=== PATIENT | male | born 1955 | race Two or more races ===

== ENCOUNTER 2017-02-19 08:15 | Emergency (ER) | payer MEDICAID, OTHER ==
[~2017-02-19] VITALS: Ht 162.6 cm; Wt 71.7 kg
--- NOTE | 2017-02-19 08:37 | NUR ---
BIB DTR TO ED DUE TO STOMACH UPSET X 2 DAYS. PATIENT ALSO REPORTED HAVING BLACK TARRY STOOL X 2 DAYS. PATIENT IS AAO3, APPEARS IN NO APPRENT DISTRESS, RESPIRATION EVEN AND UNLABORED, SATING WELL ON ROOM AIR, PATIENT IS AFEBRILE. VSS. NOTED WITH TREMORS SECONDARY TO PARKINSON'S DSE. GOWNED PT AND PLACED ON TELE MONITOR. PENDING MD BELLAMY
--- NOTE | 2017-02-19 08:40 | NUR ---
MD GOODRICH AT BEDSIDE
[2017-02-19] MEDS ORDERED: PANTOPRAZOLE 40 MG VIAL ONE (08:48)
[2017-02-19] MEDS ORDERED: METOCLOPRAMIDE HCL 10 MG/2 ML VIAL ONE (08:48)
[2017-02-19] MEDS ORDERED: IV NS 0.9% 1,000 ML ONE (08:48)
[2017-02-19] MEDS ORDERED: IV SET PRIMARY PUMP SET 1 EA INFUS.SET MC ONE (08:49)
[2017-02-19] MEDS ORDERED: LORAZEPAM INJ 2 MG/ML VIAL ONE (08:49)
[2017-02-19] MEDS ORDERED: IV NS 0.9% 50 ML IV ONE (08:49)
--- NOTE | 2017-02-19 08:50 | NUR ---
EKG IN PROGRESS
--- NOTE | 2017-02-19 08:52 | NUR ---
PT MEDICATED ORDERED
--- NOTE | 2017-02-19 08:52 | NUR ---
LAC #18 IV ACCESS. BLOOD SAMPLE COLLECTED SENT TO LAB
--- NOTE | 2017-02-19 08:55 | NUR ---
DIRECTOR BUSINESS SYSTEMS AT BEDSIDE
[2017-02-19] MEDS ORDERED: METOCLOPRAMIDE HCL 10 MG/2 ML VIAL IV ONE (09:00)
[2017-02-19] MEDS ORDERED: LORAZEPAM INJ 2 MG/ML VIAL IV ONE (09:00)
[2017-02-19] MEDS ORDERED: IV NS 0.9% 1,000 ML BAG IV ONE (09:00)
[2017-02-19] MEDS ORDERED: PANTOPRAZOLE 40 MG VIAL IV ONE (09:00)
--- NOTE | 2017-02-19 09:06 | NUR ---
URINE SAMPLE COLLECTED SENT TO LAB
[2017-02-19 09:13] LABS: BASOPHILS # (AUTO) 0.1 /CMM (0.0-0.2); BASOPHILS % (AUTO) 1.2 % (0.0-2.0); EOSINOPHILS % (AUTO) 0.7 % (0.0-6.0); HEMATOCRIT 44 % (39-51); LYMPHOCYTES # (AUTO) 2.2 /CMM (0.8-4.8); MEAN CORPUSCULAR HEMOGLOBIN 28 PG (26.0-33.0); MEAN CORPUSCULAR HGB CONC 32 g/dl (31.0-36.0); MEAN CORPUSCULAR VOLUME 87 fL (80-96); MONOCYTES # (AUTO) 0.7 /CMM (0.1-1.30); MONOCYTES % (AUTO) 9.9 % (2.0-12.0); NEUTROPHILS # (AUTO) 4.1 /CMM (1.8-8.9); NEUTROPHILS % (AUTO) 57.2 % (43.0-81.0); PLATELET COUNT (AUTO) 233 /CMM (150-450); RDW COEFFICIENT OF VARIATION 17.1 (11.5-15.0); RED BLOOD CELL COUNT(AUTO) 5.02 MIL/uL (4.5-6.0); WHITE BLOOD COUNT (AUTO) 7.2 K/uL (4.3-11.0)
[2017-02-19 09:16] LABS: APPEARANCE,URINE SL CLOUDY (CLEAR); BILIRUBIN,URINE NEGATIVE (NEGATIVE); BLOOD, URINE NEGATIVE Ery/uL (NEGATIVE); COLOR,URINE YELLOW (YELLOW); KETONES,URINE TRACE (NEGATIVE); LEUKOCYTE ESTERASE ,URINE NEGATIVE (NEGATIVE); NITRITE, URINE NEGATIVE (NEGATIVE); PH,URINE 7.5 (5.0-8.0); PROTEIN,URINE NEGATIVE (NEGATIVE); UGLUCOSE NEGATIVE (NEGATIVE)
[2017-02-19 09:23] LABS: ADD URINE CULTURE NO; BACTERIA,URINE None seen /HPF (None Seen); RBC,URINE 0-2 /HPF (0-2); SQUAMOUS EPITHELIAL CELL,UR Rare /HPF (None Seen); WBC,URINE 0-2 /HPF (0-3)
[2017-02-19 09:33] LABS: ALANINE AMINOTRANSFERASE 25 U/L (12-78); ALBUMIN 3.9 g/dL (3.4-5.0); ALKALINE PHOSPHATASE 100 U/L (46-116); ASPARTATE AMINOTRANSFERASE 38 U/L (15-37); BILIRUBIN,DIRECT 0.3 mg/dL (0.0-0.2); BILIRUBIN,TOTAL 1.8 mg/dL (0.2-1.0); CALCIUM, SERUM 8.9 mg/dL (8.5-10.1); CARBON DIOXIDE 23 mmol/L (21-32); CHLORIDE 104 mmol/L (98-107); GFR 76 mL/min (>60); GLUCOSE 104 mg/dL (74-106); INR 1.04 (0.87-1.13); POTASSIUM 3.5 mmol/L (3.5-5.1); PROTHROMBIN TIME 11.2 SECS (9.5-12.7); SODIUM SERUM 140 mmol/L (136-145); TOTAL PROTEIN, SERUM 7.9 g/dL (6.4-8.2); TROPONIN I < 0.017 ng/mL (0.00-0.056); UREA NITROGEN, BLOOD 9 mg/dL (7-18)
[2017-02-19] MEDS ORDERED: LORAZEPAM 1 MG TABLET ONE (09:53)
[2017-02-19] MEDS ORDERED: LORAZEPAM 1 MG TABLET PO ONE (10:00)
[2017-02-19 10:09] VITALS: BP 137/90
--- NOTE | 2017-02-19 10:09 | NUR ---
Patient discharged to home in stable condition. Written and verbal after care instructions given. Patient verbalizes understanding of instruction.
[2017-02-20] MEDS ORDERED: DIAZ5TAB PO (17:07)
[2017-02-20] MEDS ORDERED: OMEP40CA37 PO (17:07)
[2017-02-20] MEDS ORDERED: CARB-95 PO (17:07)
[2017-02-20] MEDS ORDERED: IBUP-1955 PO (17:07)
== END 2017-02-19 10:10 | disposition home or self-care (01) ==
LOC: ER 08:22
DX: K92.2 Gastrointestinal hemorrhage, unspecified (principal); G25.2 Other specified forms of tremor; G20 Parkinson's disease; I10 Essential (primary) hypertension; M19.90 Unspecified osteoarthritis, unspecified site; Z98.890 Other specified postprocedural states
CPT/HCPCS: 36415; 71010-TC; 80048-TC; 80076-TC; 81000-TC; 84484-TC; 85025-TC; 85730-TC; A4216; A4606; C9113; J2060; J2765; J7030; Z7610

== ENCOUNTER 2017-02-20 16:26 | Inpatient (IN) | payer MEDICAID, OTHER ==
[~2017-02-20] VITALS: Ht 154.9 cm; Wt 63.5 kg
--- NOTE | 2017-02-20 16:43 | NUR ---
PT PRESENTED TO THE ER WITH A C/O SHAKING. PT HAS HX OF PARKINSON'S AND IS CURRENTLY ON CARVADOPA/LEVADOPA. PT STATED THAT IT IS TAKING 3 MONTHS TO GET INTO SEE HIS NEUROLOGIST. PT HAS UNCONTROLLED SHAKING/TREMORS. PT WAS PLACED ON THE MONITOR AND CONTINUOUS PULSE OX. 18G IV STARTED IN [facility]. BLOOD DRAWN AND SENT TO LAB.
[2017-02-20] MEDS ORDERED: LORAZEPAM INJ 2 MG/ML VIAL ONE (16:45)
[2017-02-20 16:57] LABS: BASOPHILS % (AUTO) 0.5 % (0.0-2.0); EOSINOPHILS # (AUTO) 0.1 /CMM (0.0-0.7); EOSINOPHILS % (AUTO) 1.4 % (0.0-6.0); HEMATOCRIT 41 % (39-51); HEMOGLOBIN 13.3 g/dL (13.5-17.5); LYMPHOCYTES # (AUTO) 2.5 /CMM (0.8-4.8); LYMPHOCYTES % (AUTO) 34.1 % (20.0-44.0); MEAN CORPUSCULAR HEMOGLOBIN 29 PG (26.0-33.0); MEAN CORPUSCULAR HGB CONC 33 g/dl (31.0-36.0); MEAN CORPUSCULAR VOLUME 88 fL (80-96); MONOCYTES % (AUTO) 13.3 % (2.0-12.0); NEUTROPHILS # (AUTO) 3.7 /CMM (1.8-8.9); NEUTROPHILS % (AUTO) 50.7 % (43.0-81.0); PLATELET COUNT (AUTO) 190 /CMM (150-450); RED BLOOD CELL COUNT(AUTO) 4.64 MIL/uL (4.5-6.0); WHITE BLOOD COUNT (AUTO) 7.3 K/uL (4.3-11.0)
[2017-02-20] MEDS ORDERED: LORAZEPAM INJ 2 MG/ML VIAL IV ONE (17:00)
--- NOTE | 2017-02-20 17:03 | NUR ---
XRAY IN PROGRESS AT THE BEDSIDE.
[2017-02-20 17:04] LABS: CALCIUM, SERUM 8.6 mg/dL (8.5-10.1); CARBON DIOXIDE 27 mmol/L (21-32); CHLORIDE 105 mmol/L (98-107); GFR 76 mL/min (>60); GLUCOSE 98 mg/dL (74-106); POTASSIUM 3.7 mmol/L (3.5-5.1); SODIUM SERUM 139 mmol/L (136-145); UREA NITROGEN, BLOOD 11 mg/dL (7-18)
[2017-02-20] MEDS ORDERED: OMEP40CA37 PO (17:07)
[2017-02-20] MEDS ORDERED: DIAZ5TAB PO (17:07)
[2017-02-20] MEDS ORDERED: IBUP-1955 PO (17:07)
[2017-02-20] MEDS ORDERED: CARB-95 PO (17:07)
[2017-02-20 17:11] LABS: ALANINE AMINOTRANSFERASE 8 U/L (12-78); ALBUMIN 3.7 g/dL (3.4-5.0); ALKALINE PHOSPHATASE 115 U/L (46-116); ASPARTATE AMINOTRANSFERASE 27 U/L (15-37); BILIRUBIN,DIRECT 0.3 mg/dL (0.0-0.2); BILIRUBIN,TOTAL 1.3 mg/dL (0.2-1.0); TOTAL PROTEIN, SERUM 7.5 g/dL (6.4-8.2)
[2017-02-20 17:13] LABS: TROPONIN I < 0.017 ng/mL (0.00-0.056)
[2017-02-20 17:16] LABS: INR 1.09 (0.87-1.13); PROTHROMBIN TIME 11.3 SECS (9.5-12.7)
--- NOTE | 2017-02-20 17:23 | NUR ---
REPORT GIVEN TO FRANCK JAMES.
[2017-02-20] MEDS ORDERED: MAG HYDROX/AL HYDROX/SIMETH 30 ML UDC PO PRN (17:30)
[2017-02-20] MEDS ORDERED: ACETAMINOPHEN 325 MG TABLET PO PRN (17:30)
[2017-02-20] MEDS ORDERED: HYDROCODONE/APAP 5/325MG 1 EACH TABLET PO PRN (17:30)
[2017-02-20] MEDS ORDERED: ZOLPIDEM TARTRATE 5 MG TABLET PO PRN (17:30)
[2017-02-20] MEDS ORDERED: Z GUARD REMEDY 2 OZ OINT TP PRN (17:30)
[2017-02-20] MEDS ORDERED: ONDANSETRON HCL/PF 4 MG/2 ML VIAL IVP PRN (17:30)
[2017-02-20] MEDS ORDERED: MAGNESIUM HYDROXIDE 30 ML UDC PO PRN (17:30)
--- NOTE | 2017-02-20 17:40 | NUR ---
DR. ROSENBAUM IS AT THE BEDSIDE EVALUATING THE PT.
--- NOTE | 2017-02-20 17:44 | NUR ---
PT LEFT FOR MS VIA WC.
[2017-02-20 18:15] VITALS: BP 127/91
--- NOTE | 2017-02-20 18:15 | NUR ---
MS RN OPENING RECEIVED PATIENT A/POX4 DENIES SOB, DIFFICULTY BREATHING OR PAIN. PATIENT STATES HIS SHAKING HAS JUST GOTTEN WORSE AND HIS MEDICATIONS DO NOT SEEM TO HE HELPING. PATIENT STATES NO NEEDS AT THIS TIME AND MD ROSENBAUM AWARE OF ADMISSION. PATIENT WITH CALL LIGHT IN REACH, BED LOWERED AND LOCKED, RAILS UPX3 FOR SAFETY WITH BED ALARM ON.
--- NOTE | 2017-02-20 18:30 | NUR ---
MS RN NOTES CALLED PHARMACY TO HAVE SINEMET BROUGHT UP FOR PATIENT IS NOT IN P[facility]
--- NOTE | 2017-02-20 18:48 | NUR ---
MS RN CLOSING PATIENT STABLE NO COMPLICATIONS. WILL ENDORSE ADMISSION AND CARE TO RN FOR COMFORT
[2017-02-20 19:00] VITALS: BP 115/72
--- NOTE | 2017-02-20 19:30 | NUR ---
MS RN NOTE PATIENT STABLE. UNCONTROLLED PARKINSONS NOTED. PATIENT ABLE TO AMBULATE TO BATHROOM WITH MINIMAL ASSISTANCE. INSTRUCTED PATIENT TO USE CALL LIGHT WHEN HE NEEDS TO USE BATHROOM. BED LOCKED AND IN LOWEST POSITION. VENETIAN BLIND MECH[employer]IC RAILS UP, CALL LIGHT WITHIN REACH. WILL CONTINUE TO MONITOR.
[2017-02-20 20:18] VITALS: BP 115/72
[2017-02-20] MEDS: CARBIDOPA/LEV CR 50/200 MG 1 UDTAB.SA PO SCH (20:20)
[2017-02-20] MEDS ORDERED: CARBIDOPA/LEVA CR 25/100MG 1 TAB.SA PO SCH (21:00)
[2017-02-20] MEDS: DIAZEPAM 5 MG TABLET PO SCH (21:26)
[2017-02-20] MEDS: LORAZEPAM 1 MG TABLET PO PRN (22:56)
--- NOTE | 2017-02-21 06:18 | NUR ---
MS RN NOTE PATIENT STABLE. SLEEPING WELL. NO S/S OF PAIN OR DISCOMFORT. IV SITE INTACT, WITH NO INFILTRATION NOTED. ALL NEEDS MET AND ATTENDED TO. WILL ENDORSE TO DAY SHIFT FOR COMFORT.
[2017-02-21] MEDS: PANTOPRAZOLE 40 MG TABLET.DR PO SCH (06:45)
[2017-02-21] MEDS: LORAZEPAM 1 MG TABLET PO PRN ×2 (06:46→19:09)
[2017-02-21 06:53] LABS: BASOPHILS # (AUTO) 0.1 /CMM (0.0-0.2); BASOPHILS % (AUTO) 1.5 % (0.0-2.0); EOSINOPHILS # (AUTO) 0.2 /CMM (0.0-0.7); EOSINOPHILS % (AUTO) 2.9 % (0.0-6.0); HEMATOCRIT 39 % (39-51); HEMOGLOBIN 12.6 g/dL (13.5-17.5); LYMPHOCYTES # (AUTO) 2.7 /CMM (0.8-4.8); MEAN CORPUSCULAR HEMOGLOBIN 28 PG (26.0-33.0); MEAN CORPUSCULAR HGB CONC 32 g/dl (31.0-36.0); MEAN CORPUSCULAR VOLUME 88 fL (80-96); MONOCYTES # (AUTO) 0.8 /CMM (0.1-1.30); MONOCYTES % (AUTO) 11.4 % (2.0-12.0); NEUTROPHILS # (AUTO) 3.2 /CMM (1.8-8.9); NEUTROPHILS % (AUTO) 46.2 % (43.0-81.0); PLATELET COUNT (AUTO) 201 /CMM (150-450); RDW COEFFICIENT OF VARIATION 17.4 (11.5-15.0); RED BLOOD CELL COUNT(AUTO) 4.42 MIL/uL (4.5-6.0)
--- NOTE | 2017-02-21 07:13 | NUR ---
MS RN NOTES RECEIVED PATIENT IN BED AWAKE, ALERT AND ORIENTED X4. VERBALLY RESPONSIVE WITH NO C/O PAIN OR DISCOMFORTS VOICED. ON ROOM AIR BREATHING UNLABORED. IV ACCESS ON RAC INTACT AND PATENT. ADVISED PATIENT TO CALL FOR ASSISTANCE GETTING TO THE BATHROOM HE IS UNSTABLE GAIT REPORTED BY NIGHT NURSE. CALL LIGHT WITHIN REACH. BED AT LOW POSITION AND LOCKED FOR SAFETY. WILL CONTINUE TO MONITOR ACCORDINGLY.
[2017-02-21 07:26] LABS: ALBUMIN 3.2 g/dL (3.4-5.0); BILIRUBIN,TOTAL 1.8 mg/dL (0.2-1.0); CALCIUM, SERUM 8.6 mg/dL (8.5-10.1); CREATININE 0.9 mg/dL (0.6-1.3); MAGNESIUM 1.9 mg/dL (1.8-2.4); POTASSIUM 3.8 mmol/L (3.5-5.1); TOTAL PROTEIN, SERUM 6.5 g/dL (6.4-8.2)
[2017-02-21 08:00] VITALS: BP 129/57
[2017-02-21] MEDS: CARBIDOPA/LEV CR 50/200 MG 1 UDTAB.SA PO SCH (08:11)
--- NOTE | 2017-02-21 10:25 | NUR ---
RN NOTES PATIENT SEEN AND EVALUATED PATIENT WITH ORDER FOR PSYCH CONSULT DUE TO ANXIETY. ORDER MADE AND FAXED REQUEST TO DR MALAVE.
[2017-02-21] MEDS: CARBIDOPA/LEVODOPA 25/250 MG 1 UDTAB PO SCH ×2 (13:26→17:03)
[2017-02-21] MEDS: ENTACAPONE 200 MG TABLET PO SCH ×2 (13:26→17:03)
[2017-02-21 16:00] VITALS: BP 125/85
--- NOTE | 2017-02-21 17:11 | NUR ---
RN NOTES FOLLOWED-UP WITH DR BARROW AND HEALTH PHYSICS TECHNICIAN WHETHER PATIENT WILL BE DISCHARGED TODAY AND THEY SAID THAT PATIENT IS NOT CLEAR BY DUY MCMAHAN YET, SO HE CAN'T BE DISCHARGED YET. EXPLAINED SITUATION TO PATIENT. WILL ENDORSED TO NEXT SHIFT NURSE. Addendum: 02/21/17 at 1727 by CALVIN ESCOBAR RN ERROR: KENYON, WRONG PATIENT
--- NOTE | 2017-02-21 18:51 | NUR ---
MS RN CLOSING NOTES PATIENT IN BED A/O X4, SAME ABLE TO VOICED OUT NEEDS AND CONCERNS WITH NO COMPLAINTS OF PAIN OR DISCOMFORTS DURING SHIFT. WATCHES TV ON AND OFF. ALL NEEDS AND CARE PROVIDED WELL. ON ROOM AIR, NO ACUTE DISTRESS NOTED. IV ACCESS ON RIGHT AC INTACT AND PATENT, FLUSHED WITH NS TO MAINTAIN PATENCY. CALL LIGHT WITHIN REACH OF PATIENT. BED LOW, LOCKED WITH SIDE RAILS UP APPROPRIATE FOR SAFETY. ALL DUE MEDS GIVEN ORDERED AND TOLERATED. WILL ENDORSED TO DIRECTOR SKILLS FOR COMFORT.
--- NOTE | 2017-02-21 19:30 | NUR ---
ms rn note patient stable. Will continue to monitor.
[2017-02-21 19:55] VITALS: BP 115/78
[2017-02-21] MEDS: DIAZEPAM 5 MG TABLET PO SCH (21:23)
[2017-02-21 22:00] VITALS: BP 115/78
--- NOTE | 2017-02-22 06:11 | NUR ---
MS RN NOTE PATIENT STABLE. SLEEPING WITH NO S/S OF PAIN OR RESPIRATORY DISTRESS. ALL NEEDS MET AND ATTENDED TO. WILL ENDORSE TO DAY SHIFT FOR COMFORT.
[2017-02-22] MEDS: PANTOPRAZOLE 40 MG TABLET.DR PO SCH (06:33)
--- NOTE | 2017-02-22 07:05 | NUR ---
MS RN INITIAL NOTES REPORT RECEIVED AT THE BEDSIDE. PATIENT IS RESTING COMFORTABLY IN BED. NO SOB OR DISTRESS NOTED AT THIS TIME. PATIENT DENIES PAIN. BED IN A LOW POSITION. CALL LIGHT WITHIN PATIENT REACH. WILL CONTINUE TO MONITOR.
[2017-02-22 08:00] VITALS: BP 145/51
[2017-02-22] MEDS: ENTACAPONE 200 MG TABLET PO SCH ×3 (08:13→19:41)
[2017-02-22] MEDS: CARBIDOPA/LEVODOPA 25/250 MG 1 UDTAB PO SCH ×2 (08:13→12:05)
[2017-02-22] MEDS: ESCITALOPRAM OXALATE (10 MG) 10 MG TABLET PO SCH (15:05)
[2017-02-22] MEDS: LORAZEPAM 1 MG TABLET PO PRN (15:06)
[2017-02-22 16:00] VITALS: BP 120/69
--- NOTE | 2017-02-22 19:00 | NUR ---
MS RN NOTES RECEIVED PATIENT IN BED AWAKE, ALERT AND ORIENTED X 4. IN STABLE CONDITION NO S/S OF DISTRESS NOTED. VERBALLY RESPONSIVE WITH NO C/O PAIN OR DISCOMFORTS VOICED. IV SITE INTACT W/ NO S/S OF INFILTRATION NOTED. CALL LIGHT WITHIN REACH. BED AT LOW POSITION AND LOCKED FOR SAFETY. WILL CONTINUE TO MONITOR ACCORDINGLY.
--- NOTE | 2017-02-22 19:21 | NUR ---
MS RN CLOSING NOTES NO SIGNIFICANT CHANGES IN PATIENT CONDITION THROUGHOUT THE SHIFT. NO SOB OR DISTRESS NOTED AT THIS TIME. PATIENT DENIES PAIN. BED IN A LOW POSITION, CALL LIGHT WITHIN PATIENT REACH. WILL ENDORSE FOR COMFORT.
[2017-02-22 20:00] VITALS: BP 137/91
[2017-02-22] MEDS ORDERED: CARBIDOPA/LEV CR 50/200 MG 1 UDTAB.SA PO SCH (20:00)
[2017-02-22] MEDS: DIVALPROEX SODIUM 250 MG TABLET.DR PO SCH (21:03)
[2017-02-22] MEDS: DIAZEPAM 5 MG TABLET PO SCH (21:03)
[2017-02-23] MEDS ORDERED: SECONDARY IV SET 1 EA INFUS.SET MC ONE (01:35)
[2017-02-23] MEDS: ENTACAPONE 200 MG TABLET PO SCH (05:01)
[2017-02-23] MEDS: CARBIDOPA/LEVODOPA 25/250 MG 1 UDTAB PO SCH (05:01)
--- NOTE | 2017-02-23 06:33 | NUR ---
MS RN CLOSING NOTES PATIENT COMFORTABLY IN BED ASLEEP AND EASILY AWAKEN, HEAD OF BED ELEVATED FOR BETTER LUNG EXPANSION AND BETTER CIRCULATION, TOLERATING ROOM AIR, SP02 96% R.A ALERT AND VERBALLY X 4 NO S/S OF DISTRESS, TOLERATED WELL, IV SITE INTACT W/ NO S/S OF INFILTRATION NOTED. RESPIRATIONS EVEN UNLABORED BREATH SOUNDS. APICAL PULSE REGULAR; GOOD SKIN CARE PROVIDED. PATIENT IN STABLE CONDITION WITH NO SOB NO S/S OF DISTRESS NO NAUSEA AND VOMITING NO HEADACHE NO PAIN, NO CHEST PAIN SAFETY ENVIRONMENT PROVIDED. FREE OF CLUTTERS, SAFE HAZARD FREE ENVIRONMENT. NEEDS ATTENDED AND ANTICIPATED, NURSING CARE RENDERED, KEPT CLEAN AND DRY AND COMFORTABLE. ALL DUE MEDS WAS GIVEN. CALL LIGHT IN REACH, BED LOWERED AND LOCKED, SR X2 FOR SAFETY AND WILL ENDORSE CONTINUE PLAN OF CARE.
--- NOTE | 2017-02-23 07:05 | NUR ---
MS RN INITIAL NOTES REPORT RECEIVED AT THE BEDSIDE. PATIENT IS RESTING COMFORTABLY IN BED. NO SOB OR DISTRESS NOTED AT THIS TIME. PATIENT DENIES PAIN. BED IN A LOW POSITION, CALL LIGHT WITHIN PATIENT REACH. WILL CONTINUE TO MONITOR.
[2017-02-23 08:00] VITALS: BP 123/67
--- NOTE | 2017-02-23 08:02 | NUR ---
MS RN NOTE PATIENT HAS ACCIDENTAL PULLED OUT HIS IV. PATIENT IS NOW REFUSING TO HAVE A NEW ONE INSERTED AND STATES "I AM GOING HOME TODAY, I DON'T NEED IT." WILL INFORM MD.
[2017-02-23] MEDS: PANTOPRAZOLE 40 MG TABLET.DR PO SCH (08:05)
[2017-02-23] MEDS: ESCITALOPRAM OXALATE (10 MG) 10 MG TABLET PO SCH (08:05)
[2017-02-23] MEDS: DIVALPROEX SODIUM 250 MG TABLET.DR PO SCH (08:05)
--- NOTE | 2017-02-23 11:13 | NUR ---
MS BI TECHNICAL LEAD NOTES DISCHARGE INSTRUCTIONS GIVEN TO THE PATIENT AND DAUGHTER AND ABLE TO UNDERSTAND. ALL PAPERWORK SIGNED AND BELONGINGS ACCOUNTED FOR. PATIENT REMOVED IV THIS MORNING, NO BLEEDING NOTED AT THE SITE. PICTURES ARE NOT NEEDED FOR THIS PATIENT SKIN IS INTACT. VITALS CHECKED AND RECORDED. NEW PRESCRIPTIONS GIVEN TO THE PATIENT AND PATIENT UNDERSTANDS FOLLOW UP INSTRUCTIONS WITH [facility]. PATIENT LEFT IN STABLE CONDITION, VIA WHEEL CHAIR, WITH DAUGHTER AND LYNN STRONG. PATIENT DISCHARGED TO HOME WITH DAUGHTER.
== END 2017-02-23 11:14 | disposition home or self-care (01) | DRG 42 ==
LOC: ER 16:28 → MEDSG2 17:30
PROVIDERS: ADMIT Family Medicine; ATTEND Family Medicine
DX: G20 Parkinson's disease (principal); E44.1 Mild protein-calorie malnutrition; I10 Essential (primary) hypertension; M19.90 Unspecified osteoarthritis, unspecified site; R53.81 Other malaise; F39 Unspecified mood [affective] disorder; F41.9 Anxiety disorder, unspecified; K21.9 Gastro-esophageal reflux disease without esophagitis; Z79.899 Other long term (current) drug therapy; M17.9 Osteoarthritis of knee, unspecified; Z68.26 Body mass index [BMI] 26.0-26.9, adult
CPT/HCPCS: 36415; 71010-TC; 80048-TC; 80053-TC; 80076-TC; 83735-TC; 84100-TC; 84484-TC; 85025-TC; 85730-TC; 97001-TC; A4606; J2060; J2405; Z7610

== ENCOUNTER 2017-04-10 09:05 | Emergency (ER) | payer OTHER ==
[~2017-04-10] VITALS: Ht 162.6 cm; Wt 65.8 kg
[~2017-04-10 09:05] MED LIST: DIAZ5TAB PO; IBUP-1955 PO; OMEP40CA37 PO
--- NOTE | 2017-04-10 09:16 | NUR ---
PATIENT ARRIVED TO ER, C/O WEAKNESS. PATIENT IS A/OX 3. BREATHING EVEN AND UNLABORED ON ROOM AIR. NO SOB. VITALS STABLE. SAFETY AND COMFORT MEASURES IN PLACE. AWAITING MD ORDERS.
[2017-04-10] MEDS ORDERED: LORAZEPAM INJ 2 MG/ML VIAL ONE (09:29)
[2017-04-10] MEDS ORDERED: LORAZEPAM INJ 2 MG/ML VIAL IVP ONE (09:30)
[2017-04-10 09:32] LABS: BASOPHILS % (AUTO) 0.5 % (0.0-2.0); EOSINOPHILS # (AUTO) 0.1 /CMM (0.0-0.7); EOSINOPHILS % (AUTO) 1.3 % (0.0-6.0); HEMATOCRIT 45 % (39-51); HEMOGLOBIN 14.6 g/dL (13.5-17.5); LYMPHOCYTES # (AUTO) 1.9 /CMM (0.8-4.8); LYMPHOCYTES % (AUTO) 27.2 % (20.0-44.0); MEAN CORPUSCULAR HEMOGLOBIN 27 PG (26.0-33.0); MEAN CORPUSCULAR HGB CONC 32 g/dl (31.0-36.0); MEAN CORPUSCULAR VOLUME 83 fL (80-96); MONOCYTES # (AUTO) 0.8 /CMM (0.1-1.30); NEUTROPHILS # (AUTO) 4.1 /CMM (1.8-8.9); PLATELET COUNT (AUTO) 214 /CMM (150-450); RDW COEFFICIENT OF VARIATION 16.6 (11.5-15.0); RED BLOOD CELL COUNT(AUTO) 5.44 MIL/uL (4.5-6.0); WHITE BLOOD COUNT (AUTO) 6.9 K/uL (4.3-11.0)
--- NOTE | 2017-04-10 09:37 | NUR ---
NEW IV STARTED ON RIGHTH AND, 20 G. BLOOD DRAWN, SENT TO LAB FOR TESTING. MEDICATED PATIENT PER MD ORDERS.
[2017-04-10 09:44] LABS: CALCIUM, SERUM 9.4 mg/dL (8.5-10.1); CREATININE 0.9 mg/dL (0.6-1.3)
[2017-04-10 10:09] VITALS: BP 138/76
--- NOTE | 2017-04-10 10:18 | NUR ---
PATIENT CLEARED FOR DISCHARGE PER MD. VITALS REMAIN STABLE. PRESCRIPTION HANDED TO PATIENT. DISCHARGE EDUCATION PROVIDED REGARDING MEDICATIONS. PATIENT VERBALIZES UNDERSTANDING. IV REMOVED, ID BAND REMOVED. PATIENT DISCHARGED HOME.
== END 2017-04-10 10:18 | disposition home or self-care (01) ==
LOC: ER 09:06
DX: G20 Parkinson's disease (principal); F41.9 Anxiety disorder, unspecified; I10 Essential (primary) hypertension; K21.9 Gastro-esophageal reflux disease without esophagitis; M19.90 Unspecified osteoarthritis, unspecified site
CPT/HCPCS: 36415; 80048-TC; 85025-TC; A4606; J2060; Z7610

== ENCOUNTER 2017-05-18 07:30 | Emergency (ER) | payer OTHER ==
[~2017-05-18] VITALS: Ht 162.6 cm; Wt 61.2 kg
--- NOTE | 2017-05-18 07:38 | NUR ---
HOT FLASHES, NIGHT SWEATS X 4 MONTHS. PER PATIENT "MY DOCTOR DOESN'T DO NOTHING, JUST GETS MAD AT ME".
--- NOTE | 2017-05-18 08:15 | NUR ---
RESEARCH ASSOCIATE MOLECULAR BIOLOGY AT BEDSIDE
--- NOTE | 2017-05-18 08:21 | NUR ---
EKG IN PROGRESS
[2017-05-18] MEDS ORDERED: IV NS 0.9% 1,000 ML BAG IV ONE (08:30)
--- NOTE | 2017-05-18 08:30 | NUR ---
RAC #20 IV ACCESS. BLOOD SAMPLE COLLECTED SENT TO LAB
--- NOTE | 2017-05-18 08:40 | NUR ---
URINE SAMPLE COLLECTED SENT TO LAB
[2017-05-18 08:47] LABS: BASOPHILS % (AUTO) 0.3 % (0.0-2.0); HEMATOCRIT 43 % (39-51); HEMOGLOBIN 14.1 g/dL (13.5-17.5); LYMPHOCYTES # (AUTO) 1.4 /CMM (0.8-4.8); LYMPHOCYTES % (AUTO) 17.1 % (20.0-44.0); MEAN CORPUSCULAR HEMOGLOBIN 27 PG (26.0-33.0); MEAN CORPUSCULAR HGB CONC 33 g/dl (31.0-36.0); MEAN CORPUSCULAR VOLUME 82 fL (80-96); MONOCYTES # (AUTO) 0.8 /CMM (0.1-1.30); MONOCYTES % (AUTO) 9.5 % (2.0-12.0); NEUTROPHILS # (AUTO) 6.1 /CMM (1.8-8.9); NEUTROPHILS % (AUTO) 73.1 % (43.0-81.0); PLATELET COUNT (AUTO) 223 /CMM (150-450); RDW COEFFICIENT OF VARIATION 16.7 (11.5-15.0); RED BLOOD CELL COUNT(AUTO) 5.24 MIL/uL (4.5-6.0); WHITE BLOOD COUNT (AUTO) 8.4 K/uL (4.3-11.0)
[2017-05-18 08:52] LABS: APPEARANCE,URINE SL CLOUDY (CLEAR); BILIRUBIN,URINE NEGATIVE (NEGATIVE); BLOOD, URINE NEGATIVE Ery/uL (NEGATIVE); COLOR,URINE YELLOW (YELLOW); KETONES,URINE 1+ (NEGATIVE); LEUKOCYTE ESTERASE ,URINE TRACE (NEGATIVE); NITRITE, URINE NEGATIVE (NEGATIVE); PROTEIN,URINE NEGATIVE (NEGATIVE); UGLUCOSE NEGATIVE (NEGATIVE)
[2017-05-18 08:55] LABS: CARBON DIOXIDE 24 mmol/L (21-32); CHLORIDE 101 mmol/L (98-107); GLUCOSE 115 mg/dL (74-106); POTASSIUM 3.9 mmol/L (3.5-5.1); SODIUM SERUM 135 mmol/L (136-145); UREA NITROGEN, BLOOD 16 mg/dL (7-18)
[2017-05-18 09:02] LABS: ALANINE AMINOTRANSFERASE 11 U/L (12-78); ALBUMIN 3.8 g/dL (3.4-5.0); ALKALINE PHOSPHATASE 114 U/L (46-116); ASPARTATE AMINOTRANSFERASE 31 U/L (15-37); BILIRUBIN,DIRECT 0.3 mg/dL (0.0-0.2); BILIRUBIN,TOTAL 1.8 mg/dL (0.2-1.0); LIPASE 161 U/L (73-393); TOTAL PROTEIN, SERUM 7.8 g/dL (6.4-8.2); TROPONIN I < 0.017 ng/mL (0.00-0.056)
[2017-05-18 09:05] LABS: BACTERIA,URINE Few /HPF (None Seen); RBC,URINE NONE SEEN /HPF (0-2); SQUAMOUS EPITHELIAL CELL,UR Few /HPF (None Seen)
[2017-05-18 09:10] LABS: INR 1.02 (0.87-1.13); PROTHROMBIN TIME 10.9 SECS (9.5-12.7)
--- NOTE | 2017-05-18 09:35 | NUR ---
IV removed. Catheter intact and site benign. Pressure and 4x4 applied to site. No bleeding noted.
--- NOTE | 2017-05-18 09:35 | NUR ---
Patient discharged to home in stable condition. Written and verbal after care instructions given. Patient verbalizes understanding of instruction.
[2017-05-18 09:36] VITALS: BP 124/82
== END 2017-05-18 09:37 | disposition home or self-care (01) ==
LOC: ER 07:32
DX: R61 Generalized hyperhidrosis (principal); R63.4 Abnormal weight loss; R63.0 Anorexia; R59.1 Generalized enlarged lymph nodes; E80.6 Other disorders of bilirubin metabolism; G20 Parkinson's disease; I10 Essential (primary) hypertension; K21.9 Gastro-esophageal reflux disease without esophagitis; M19.90 Unspecified osteoarthritis, unspecified site; R79.1 Abnormal coagulation profile; F17.200 Nicotine dependence, unspecified, uncomplicated
CPT/HCPCS: 36415; 71010; 80048; 80076; 81001; 83690; 84443; 84484; 85025; 85730; 93005; 96360; 99285; A4606; J7030 ×2; Z7610; 81000-TC

== ENCOUNTER 2017-07-28 18:11 | Emergency (ER) | payer OTHER ==
[~2017-07-28] VITALS: Ht 162.6 cm; Wt 63.5 kg
--- NOTE | 2017-07-28 20:16 | NUR ---
PATIENT AMBULATED TO ER BED 7
[2017-07-28] MEDS ORDERED: LORAZEPAM 1 MG TABLET ONE (20:46)
[2017-07-28 20:59] LABS: BASOPHILS # (AUTO) 0.1 /CMM (0.0-0.2); BASOPHILS % (AUTO) 0.8 % (0.0-2.0); EOSINOPHILS # (AUTO) 0.1 /CMM (0.0-0.7); EOSINOPHILS % (AUTO) 1.5 % (0.0-6.0); HEMATOCRIT 43 % (39-51); HEMOGLOBIN 13.9 g/dL (13.5-17.5); LYMPHOCYTES # (AUTO) 2.1 /CMM (0.8-4.8); LYMPHOCYTES % (AUTO) 21.3 % (20.0-44.0); MEAN CORPUSCULAR HEMOGLOBIN 27 PG (26.0-33.0); MEAN CORPUSCULAR HGB CONC 32 g/dl (31.0-36.0); MEAN CORPUSCULAR VOLUME 84 fL (80-96); MONOCYTES # (AUTO) 0.9 /CMM (0.1-1.30); MONOCYTES % (AUTO) 9.2 % (2.0-12.0); NEUTROPHILS # (AUTO) 6.5 /CMM (1.8-8.9); NEUTROPHILS % (AUTO) 67.2 % (43.0-81.0); PLATELET COUNT (AUTO) 241 /CMM (150-450); RDW COEFFICIENT OF VARIATION 15.3 (11.5-15.0); RED BLOOD CELL COUNT(AUTO) 5.16 MIL/uL (4.5-6.0); WHITE BLOOD COUNT (AUTO) 9.7 K/uL (4.3-11.0)
[2017-07-28] MEDS ORDERED: LORAZEPAM 1 MG TABLET PO ONE (21:00)
--- NOTE | 2017-07-28 21:00 | NUR ---
MEDICATED PT ORDERED
--- NOTE | 2017-07-28 21:05 | NUR ---
20G LEFT AC IV STARED, BLOOD SAMPLE OBTAINED AND SENT TO LAB
[2017-07-28 21:12] LABS: ALANINE AMINOTRANSFERASE 16 U/L (12-78); ALBUMIN 3.8 g/dL (3.4-5.0); ALKALINE PHOSPHATASE 129 U/L (46-116); ASPARTATE AMINOTRANSFERASE 40 U/L (15-37); BILIRUBIN,DIRECT 0.3 mg/dL (0.0-0.2); BILIRUBIN,TOTAL 1.1 mg/dL (0.2-1.0); CALCIUM, SERUM 9.3 mg/dL (8.5-10.1); CARBON DIOXIDE 27 mmol/L (21-32); CHLORIDE 103 mmol/L (98-107); GLUCOSE 86 mg/dL (74-106); SODIUM SERUM 139 mmol/L (136-145); TOTAL PROTEIN, SERUM 7.9 g/dL (6.4-8.2); UREA NITROGEN, BLOOD 15 mg/dL (7-18)
[2017-07-28 21:20] LABS: TROPONIN I < 0.017 ng/mL (0.00-0.056)
--- NOTE | 2017-07-28 22:22 | NUR ---
Patient discharged to home in stable condition. Written and verbal after care instructions given. Patient verbalizes understanding of instruction.IV removed. Catheter intact and site benign. Pressure and 4x4 applied to site. No bleeding noted. PT ambulatory with a steady gait.
[2017-07-28 22:25] VITALS: BP 120/87
== END 2017-07-28 22:27 | disposition home or self-care (01) ==
LOC: ER 18:12
DX: F41.9 Anxiety disorder, unspecified (principal); G20 Parkinson's disease; K21.9 Gastro-esophageal reflux disease without esophagitis; M19.90 Unspecified osteoarthritis, unspecified site; Z98.890 Other specified postprocedural states
CPT/HCPCS: 36415; 71010; 80048; 80076; 84443; 84484; 85025; 93005; 99285; A4606; Z7610

== ENCOUNTER 2018-01-04 11:54 | Emergency (ER) | payer OTHER ==
[~2018-01-04] VITALS: Ht 162.6 cm; Wt 72.6 kg
--- NOTE | 2018-01-04 12:00 | NUR ---
generalized weakness, nausea and vomiting R L Q abd pain, cramping, non radiating x 2 days. c/o dysuria nad noted, vss, resp even and unlabored, pt was put on monitor and hospital, waiting for md petty.
[2018-01-04] MEDS ORDERED: ONDANSETRON HCL/PF 4 MG/2 ML VIAL ONE (12:26)
[2018-01-04 12:27] LABS: BASOPHILS % (AUTO) 0.6 % (0.0-2.0); EOSINOPHILS % (AUTO) 1.1 % (0.0-6.0); HEMATOCRIT 40 % (39-51); LYMPHOCYTES % (AUTO) 26.9 % (20.0-44.0); MEAN CORPUSCULAR HGB CONC 33 g/dl (31.0-36.0); MEAN CORPUSCULAR VOLUME 79 fL (80-96); MONOCYTES # (AUTO) 0.8 /CMM (0.1-1.30); NEUTROPHILS # (AUTO) 4.7 /CMM (1.8-8.9); NEUTROPHILS % (AUTO) 61.4 % (43.0-81.0); PLATELET COUNT (AUTO) 302 /CMM (150-450); RDW COEFFICIENT OF VARIATION 17.1 (11.5-15.0); RED BLOOD CELL COUNT(AUTO) 5.04 MIL/uL (4.5-6.0); WHITE BLOOD COUNT (AUTO) 7.6 K/uL (4.3-11.0)
[2018-01-04] MEDS ORDERED: LORAZEPAM INJ 2 MG/ML VIAL ONE (12:27)
[2018-01-04 12:28] LABS: APPEARANCE,URINE Cloudy (CLEAR); BILIRUBIN,URINE Negative (NEGATIVE); BLOOD, URINE Negative Ery/uL (NEGATIVE); COLOR,URINE Yellow (YELLOW); KETONES,URINE Negative (NEGATIVE); LEUKOCYTE ESTERASE ,URINE Negative (NEGATIVE); NITRITE, URINE Negative (NEGATIVE); PH,URINE 8.5 (5.0-8.0); PROTEIN,URINE Negative (NEGATIVE); UGLUCOSE Negative (NEGATIVE)
[2018-01-04] MEDS ORDERED: LORAZEPAM INJ 2 MG/ML VIAL IV ONE (12:30)
[2018-01-04] MEDS ORDERED: IV NS 0.9% 1,000 ML BAG IV ONE (12:30)
[2018-01-04] MEDS ORDERED: ONDANSETRON HCL/PF 4 MG/2 ML VIAL IVP ONE (12:30)
[2018-01-04 12:40] LABS: POTASSIUM 3.9 mmol/L (3.5-5.1)
[2018-01-04 12:42] LABS: BACTERIA,URINE None seen /HPF (None Seen); RBC,URINE 0-3 /HPF (0-2); SQUAMOUS EPITHELIAL CELL,UR Few /HPF (None Seen); WBC,URINE 0-3 /HPF (0-3)
[2018-01-04] MEDS ORDERED: HYDR-3980 PO (12:42)
[2018-01-04] MEDS ORDERED: TEMA30CA PO (12:42)
[2018-01-04] MEDS ORDERED: LORA2TAB PO (12:42)
[2018-01-04] MEDS ORDERED: GABA-534 PO (12:42)
[2018-01-04] MEDS ORDERED: LIDO30AD10 TP (12:42)
[2018-01-04] MEDS ORDERED: DOCU-141 PO (12:42)
[2018-01-04] MEDS ORDERED: POLY17PO4 PO (12:42)
[2018-01-04 12:43] LABS: URINE AMORPHOUS PHOSPHATES Moderate /HPF (None Seen)
[2018-01-04] MEDS ORDERED: CARB1TAB40 PO (12:44)
[2018-01-04 12:45] LABS: ALBUMIN 3.8 g/dL (3.4-5.0); BILIRUBIN,DIRECT 0.2 mg/dL (0.0-0.2); BILIRUBIN,TOTAL 0.5 mg/dL (0.2-1.0)
[2018-01-04 14:09] VITALS: BP 119/70
--- NOTE | 2018-01-04 14:10 | NUR ---
Patient discharged to home in stable condition. Written and verbal after care instructions given. Patient verbalizes understanding of instruction. IV removed. Catheter intact and site benign. Pressure and 4x4 applied to site. No bleeding noted.
[2018-04-15] MEDS ORDERED: SERT50TA PO (16:16)
[2018-04-15] MEDS ORDERED: TAMS0.4C34 PO (16:16)
[2018-04-15] MEDS ORDERED: CARB-93 PO (16:16)
[2018-04-15] MEDS ORDERED: GABA600T2 PO (16:17)
[2018-04-15] MEDS ORDERED: LORA2TAB PO (16:17)
[2018-04-15] MEDS ORDERED: OMEP40CA37 PO (16:17)
== END 2018-01-04 14:11 | disposition home or self-care (01) ==
LOC: ER 11:56
DX: K57.92 Diverticulitis of intestine, part unspecified, without perforation or abscess without bleeding (principal); K21.9 Gastro-esophageal reflux disease without esophagitis; M19.90 Unspecified osteoarthritis, unspecified site; F41.9 Anxiety disorder, unspecified; G20 Parkinson's disease; I10 Essential (primary) hypertension
CPT/HCPCS: 36415; 80048-TC; 80076-TC; 81000-TC; 83690-TC; 85025-TC; A4606; J2060; J2405; J7030; Z7610

== ENCOUNTER 2018-01-09 17:41 | Emergency (ER) | payer OTHER ==
[~2018-01-09] VITALS: Ht 162.6 cm; Wt 72.6 kg
[~2018-01-09 17:41] MED LIST changes: +CARB1TAB40 PO; -DIAZ5TAB PO; +DOCU-141 PO; +GABA-534 PO; +HYDR-3980 PO; +LIDO30AD10 TP; +LORA2TAB PO; +POLY17PO4 PO; +TEMA30CA PO
--- NOTE | 2018-01-09 18:25 | NUR ---
PT C/O NUMBNESS TO LEFT SIDE OF BODY, ARM AND LEG X 0800AM, HAS A HISTORY OF ANXIETY, TOOK ATIVAN IN THE AM WITHOUT RELIEF. PT IS AAOX4. PT NOTED TO BE ANXIOUS. TOES NOTED TO BE FLEXED AND PT STATES "I AM FEELING ANXIOUS." PT'S SKIN WNL. NO S/S OF ACUTE DISTRESS NOTED IN PT. RESP EVEN AND UNLBAORED. VSNasima. BEDSIDE FOR EVAL.
[2018-01-09 19:03] LABS: BASOPHILS # (AUTO) 0.1 /CMM (0.0-0.2); EOSINOPHILS % (AUTO) 0.5 % (0.0-6.0); HEMATOCRIT 40 % (39-51); LYMPHOCYTES # (AUTO) 2.1 /CMM (0.8-4.8); LYMPHOCYTES % (AUTO) 18.6 % (20.0-44.0); MEAN CORPUSCULAR HGB CONC 33 g/dl (31.0-36.0); MEAN CORPUSCULAR VOLUME 78 fL (80-96); MONOCYTES # (AUTO) 1.1 /CMM (0.1-1.30); MONOCYTES % (AUTO) 10.2 % (2.0-12.0); NEUTROPHILS # (AUTO) 7.8 /CMM (1.8-8.9); NEUTROPHILS % (AUTO) 69.7 % (43.0-81.0); PLATELET COUNT (AUTO) 259 /CMM (150-450); RDW COEFFICIENT OF VARIATION 16.8 (11.5-15.0); RED BLOOD CELL COUNT(AUTO) 5.09 MIL/uL (4.5-6.0); WHITE BLOOD COUNT (AUTO) 11.2 K/uL (4.3-11.0)
[2018-01-09 19:20] LABS: CALCIUM, SERUM 8.9 mg/dL (8.5-10.1); CREATININE 0.9 mg/dL (0.6-1.3); POTASSIUM 3.9 mmol/L (3.5-5.1)
[2018-01-09] MEDS ORDERED: LORAZEPAM INJ 2 MG/ML VIAL IV ONE (19:30)
--- NOTE | 2018-01-09 19:40 | NUR ---
PT TO CT
[2018-01-09] MEDS ORDERED: LORAZEPAM INJ 2 MG/ML VIAL ONE (19:45)
--- NOTE | 2018-01-09 19:54 | NUR ---
PT BACK FROM CT
[2018-01-09 20:00] LABS: INR 1.02 (0.85-1.15)
--- NOTE | 2018-01-09 20:17 | NUR ---
DIRECTOR OF LAND BEDSIDE
--- NOTE | 2018-01-09 21:43 | NUR ---
PT ACCEPTED BY DR. PALACIOS AT [facility].
[2018-01-09] MEDS ORDERED: ASPIRIN 325 MG TABLET ONE (21:58)
[2018-01-09] MEDS ORDERED: ASPIRIN 325 MG TABLET PO ONE (22:00)
--- NOTE | 2018-01-09 23:01 | NUR ---
YASHIRAZ CALLED; ETA [id number]; REF #[id number]
[2018-01-10] MEDS ORDERED: LORAZEPAM INJ 2 MG/ML VIAL ONE (00:29)
[2018-01-10] MEDS ORDERED: LORAZEPAM INJ 2 MG/ML VIAL IV ONE (00:30)
--- NOTE | 2018-01-10 00:35 | NUR ---
LINDSEY BEDSIDE FOR PT TRANSPORT TO [facility].
[2018-01-10 00:41] VITALS: BP 123/74
--- NOTE | 2018-01-10 00:50 | NUR ---
REPORT GIVEN TO BAR POINTERFRANCK GRIMM FOR COMFORT AT [facility]
--- NOTE | 2018-01-10 00:52 | NUR ---
Patient Tranfers to outside Facility Physician: SUZANNE Location:[facility]
[2018-04-15] MEDS ORDERED: CARB-93 PO (16:16)
[2018-04-15] MEDS ORDERED: SERT50TA PO (16:16)
[2018-04-15] MEDS ORDERED: TAMS0.4C34 PO (16:16)
[2018-04-15] MEDS ORDERED: OMEP40CA37 PO (16:17)
[2018-04-15] MEDS ORDERED: LORA2TAB PO (16:17)
[2018-04-15] MEDS ORDERED: GABA600T2 PO (16:17)
== END 2018-01-10 00:54 | disposition short-term general hospital (02) ==
LOC: ER 17:43
DX: R53.1 Weakness (principal); F41.9 Anxiety disorder, unspecified; G20 Parkinson's disease; I10 Essential (primary) hypertension; K21.9 Gastro-esophageal reflux disease without esophagitis; M19.90 Unspecified osteoarthritis, unspecified site; Z79.82 Long term (current) use of aspirin
CPT/HCPCS: 36415; 70450; 80048; 80305; 82962; 85025; 85730; 87081; 93005; 93971; 96374; 96376; 99285; A4606; G0480; J2060 ×2; Z7610